=== PATIENT | female | born 1995 | race Caucasian/White ===

== ENCOUNTER 2023-11-03 11:29 | Emergency (ER) | payer OTHER, SELFPAY ==
[2023-11-03 11:37] VITALS: BP 104/75
--- NOTE | 2023-11-03 13:32 | ED.GENMED ---
History of Present Illness
General
Chief Complaint: Chest Pain
Source: patient
Exam Limitations: none
Time Seen by Provider: 11/03/23 12:42
Nursing documentation reviewed up to this point in time: agreed with
Travel History
Have you had any contact with someone who has COVID-19?: No
Do you have any symptoms of coronavirus? Fever > 100 degrees, chills, cough, shortness of breath, sore throat, loss of taste or smell, muscle aches, or headache?: No
History of Present Illness
History of Present Illness:
28-year-old female past history of POTS presenting to the emergency department today with concerns of intermittent palpitations last a few minutes at a time over the past few days. Does have a vinegar maker has had significant cardiac workups in the
past for similar symptoms without specific result.
Review of Systems
Review of Systems
Allergies reviewed?: Yes
All Other Systems: ROS reviewed and negative except as documented in HPI and ROS
Phy Exam
Physical Exam
Physical Exam:
GENERAL: Alert , in no apparent distress
EYE: pupils equal and reactive
NECK: Supple, no significant adenopathy.
ENT: o/p clr, mmm.
CARDIAC: Regular rate and rhythm .
LUNGS: Clear breath sounds bilaterally, no acute respiratory distress, no wheezes/rales/rhonchi
ABDOMEN: Soft, without focal tenderness, no r/g, no cvat
NEUROLOGICAL: Alert and oriented, no focal neuro deficits
SKIN: Warm and dry, skin intact.
MUSCULOSKELETAL: No edema, well perfused.
PSYCH: Normal and appropriate interaction.
Scores
Heart Score for Chest Pain Patients
STEMI patient?: No
History: Slightly or Non-Suspicious
ECG: Nonspecific Repolarization
Age: </= 45 years
Risk Factors: No Risk Factors
Troponin: </= Normal Limit
Heart Score for Chest Pain Patients: 1
Heart Score Risk: 2.5% MACE over next 6 weeks
Course
Orders/Labs/Results
Orders:
Orders
11/03/23 11:42
Electrocardiogram (*1) Urgent
Reason for Study: Chest Pain
EKG- Treatment ONCE
11/03/23 13:33
Complete Blood Count/With Diff Urgent
Comprehensive Metabolic Panel Urgent
Troponin I Urgent
11/03/23 13:35
Chest [CR Chest - 2 Views ] Urgent
Comment:
Reason For Exam: cp
11/03/23 14:34
EKG [Electrocardiogram (*1)] Urgent
Reason for Study: Chest Pain
Abnormal Lab Results
11/03/23
13:33
RBC 4.15 L 10^6/uL
(4.20-5.40)
MCH 31.1 H pg
(27.0-31.0)
Alkaline Phosphatase 33 L U/L
(38-126)
11/03/23 13:33
11/03/23 13:33
Vital Signs
Initial and Last Documented VS:
Initial Vital Signs
Temp Pulse Resp BP Pulse Ox
98.1 F 95 18 104/75 100
11/03/23 11:37 11/03/23 11:37 11/03/23 11:37 11/03/23 11:37 11/03/23 11:37
Last Documented Vital Signs
Temp Pulse Resp BP Pulse Ox
98.1 F 89 31 106/59 100
11/03/23 11:37 11/03/23 15:30 11/03/23 15:30 11/03/23 15:24 11/03/23 15:30
MDM/Problems Addressed
MDM/Problems Addressed:
28-year-old female presenting to the emergency department today with concerns of intermittent palpitations. Here she appears well in no distress she also has some intermittent chest pain rating down her left arm also no longer present. Normal
vital signs here patient no distress normal heart and lung examination. Patient generally well-appearing in no events during ER stay. Heart rate remaining normal here. EKG did have some T wave changes however no significant changes from previous
EKGs that the patient was able to supply to me and show me directly during her visit though it is not in our system. Concerning this and normal workup emergently here patient stable for outpatient follow-up. She does have a vinegar maker and will
follow-up closely with him. Return precautions given.
*Critical Care Note
Total Time (30-74mins, 75-104mins- exclusive of procedures): Not Applicable
ED Attending Note
-
Portions of this chart may have been created with voice recognition software.� Occasional wrong word or��sound alike� substitutions may have occurred due to the inherent limitations of voice recognition software.
Discharge Plan
Departure
Patient Disposition: Home (Routine Discharge)
Date of Disposition: 11/03/23
Time of Disposition: 15:38
Patient with high blood pressure during this ER visit?: No
Condition: Good
Covid-19: Not Applicable
Discharge Problem:
Chest pain
Instructions: Chest pain
Referrals:
Lanie Beverly MD [Family Provider] -
Shawn Wheeler, [Active] - Follow up in 5-7 days
Activity Restrictions/Additional Instructions:
You came to the emergency department today with concerns of chest discomfort. Here you had a reassuring assessment. Please have closely with your vinegar maker. Return to the emergency department any worsening, new or concerning symptoms.
Interventions
Interventions:
*Risk Screen - Suicide Last Done: 11/03/23 11:37
*General Assessment Last Done: 11/03/23 15:33
*Neglect/Abuse Screening Last Done: 11/03/23 11:37
ED- Fall Risk Assessment Last Done: 11/03/23 15:33
*ED COVID-19 Vaccine History Last Done: 11/03/23 11:37
ED- Cardiac Assessment Last Done: 11/03/23 15:33
Discharge Date and Time
Print Language: CITIZEN [place]
[2023-11-03 13:40] LABS: % Basophils 1.1 % (0-2); % Eosinophils 0.8 % (0-6); % Immature Granulocytes 0.2 % (0-0.5); % Lymphocytes 22.8 % (20.5-51.1); % Monocytes 4.2 % (1.7-9.3); % Neutrophils 70.9 % (42.2-75.2); Absolute Basophils 0.1 10^3/uL (0-0.2); Absolute Eosinophils 0.1 10^3/uL (0-0.7); Absolute Lymphocytes 1.9 10^3/uL (1.2-3.4); Absolute Monocytes 0.4 10^3/uL (0.1-0.6); Absolute Neutrophils 5.9 10^3/uL (1.4-6.5); Hemoglobin 12.9 g/dL (12.0-16.0); Mean Corp Hgb Conc. 33.9 g/dL (33.0-37.0); Mean Corpuscular Hgb 31.1 pg (27.0-31.0); Mean Corpuscular Volume 91.6 fL (81.0-99.0); Mean Platelet Volume 8.9 fL (7.4-10.4); Nucleated Red Blood Cells % 0 %; Platelet Count 229 10^3/uL (130-400); Red Blood Cell Count 4.15 10^6/uL (4.20-5.40); Red Cell Dist. Width 12.9 % (11.5-14.5); White Blood Cell Count 8.3 10^3/uL (4.8-10.8)
[2023-11-03 14:05] LABS: ALT (SGPT) 14 U/L (0-35); AST (SGOT) 23 U/L (14-36); Albumin 4.9 g/dl (3.5-5.0); Alkaline Phosphatase 33 U/L (38-126); Blood Urea Nitrogen 12 mg/dl (7-17); Calcium 9.6 mg/dl (8.4-10.2); Carbon Dioxide 25 mmol/L (22-30); Chloride 105 mmol/L (98-107); Glucose 80 mg/dl (70-99); Potassium 4.1 mmol/L (3.5-5.1); Sodium 140 mmol/L (135-145); Total Bilirubin 0.6 mg/dl (0.2-1.3); eGFR > 60.00
[2023-11-03 14:16] LABS: Troponin I < 0.012 ng/ml
[2023-11-03 15:24] VITALS: BP 106/59
[2023-11-03 15:28] VITALS: BMI 15.9
== END 2023-11-03 16:03 | disposition home or self-care (01) ==
LOC: EMR 11:29
PROVIDERS: Emergency Medicine; EMERGENCY PHYSICIAN Emergency Medicine; FAMILY PHYSICIAN Family Medicine
DX: R07.89 Other chest pain (principal); M79.602 Pain in left arm; G90.A Postural orthostatic tachycardia syndrome [POTS]; E06.3 Autoimmune thyroiditis; F43.10 Post-traumatic stress disorder, unspecified
CPT/HCPCS: 99283; 71046; 80053; 84484; 85025; 93005